=== PATIENT | male | born 1960 | race Caucasian/White ===

== ENCOUNTER 2023-12-05 10:04 | Emergency (ER) | payer SELFPAY ==
[2023-12-05 10:06] VITALS: BP 188/104; PULSE 63; RESP 18; TEMP 36.4; O2SAT 95; BMI 28.3
[2023-12-05 10:38] VITALS: O2SAT 95
--- NOTE | 2023-12-05 10:50 | RAD_ITS ---
STUDY: X-RAY CHEST REASON FOR EXAM: Male, 63 years old. Shortness of breath TECHNIQUE: PA and lateral views of the chest. COMPARISON: None. FINDINGS: Minimal increased markings at the left lung base suggests developing atelectasis. There is no demonstrated pleural abnormality. Normal size heart. Normal mediastinum and muna. Normal visualized pulmonary arteries. Normal visualized aortic arch and descending thoracic aorta. Normal visualized thoracic spine. Prior lower cervical fusion. There is no demonstrated abnormality of the visualized soft tissue structures of the upper abdomen. RAD/Chest PA and Lateral IMPRESSION: Mild increased markings at the left lung base suggestive of left basilar atelectasis. Electronically Signed: Gary Guzman MD at 11:21 EST ,
--- NOTE | 2023-12-05 11:20 | EDS_ITS ---
HPI <Crystal Melara RN - Last Filed: 12/05/23 11:39> History of Present Illness Chief Complaint: Shortness of Breath Detail of Chief Complaint: Shortness of breath and cough x 7 weeks Informant: patient Onset/Context/Timing Onset: Weeks (7) Context: Gradual Onset Timing: Waxes and wanes Current Severity: Mild Maximum Severity: Moderate Worsened by: Worse with walking and laying flat Relieved by: Rest Narrative Narrative: Patient presented to the ED for shortness of breath and cough for 7 weeks. Patient also reports sternal and abdominal pain with coughing. Seen at urgent care 3 times over the past 7 weeks. Prescribed Mucinex, albuterol, and prednisone. Reports some relief with Mucinex. Minimal relief with albuterol. And prednisone has been effective. Patient has been on 3 different antibiotics?doxycycline, Augmentin, azithromycin. Reports improvement after antibiotics for approximately 1 week and then symptoms returned. Patient reports he has not had a chest x-ray. He has declined chest x-ray at urgent care due to lack of insurance. Cough has been productive with variation in color of sputum ranging from brown, green, to rust, currently white now. Patient reports symptoms worsened yesterday and has been begun having spasms with coughing. Patient reports shortness of breath with walking and worse when laying flat. Also reports green nasal drainage for which he has been using saline nasal spray. Denies past medical history and home medications. Reports quarter pack per day smoker x 17 years. Prior similar symptoms: No Recent Illness/Hospitalization: No PFSH <Crystal Melara RN - Last Filed: 12/05/23 11:39> PFS Medical History no medical history no medical history Home Medications prednisone 20 mg tablet 40 mg (2 x 20 mg) PO DAILY 10 days #20 tabs 12/05/23 [Rx Last Taken Unknown] Allergy/AdvReac Type Severity Reaction Status Date / Time No Known Allergies Allergy Verified 12/05/23 10:05 Family History other other (CAD, bladder and liver cancer) Surgical History no surgical history no surgical history Social History Smoking Status: Unknown if ever smoked ROS <Crystal Melara RN - Last Filed: 12/05/23 11:39> ROS ED ENT ENT ED: Reports rhinorrhea; Denies ear pain or sore throat Cardiovascular Cardiovascular: Reports chest pain and orthopnea; Denies palpitations, paroxysmal nocturnal dyspnea or racing heartbeat Respiratory/Chest Respiratory/Chest: Reports cough, dyspnea, dyspnea on exertion, orthopnea and sputum; Denies paroxysmal nocturnal dyspnea Gastrointestinal Gastrointestinal: Reports abdominal pain; Denies constipation, diarrhea, melena, nausea or vomiting Musculoskeletal Musculoskeletal: Denies arthralgias or myalgias Neurologic Neurologic: Denies headache(s) or paresthesias Hematologic/Lymphatic Hematologic/Lymphatic: Reports systems reviewed and no addt'l complaints, except as documented EXAM <Crystal Melara RN - Last Filed: 12/05/23 11:39> Physical Exam Const Vital Signs: 12/05/23 10:06 12/05/23 10:38 Temperature 97.5 F L Temperature Source Temporal Pulse Rate 63 Respiratory Rate 18 Respiratory Effort Normal Short of Breath Blood Pressure 188/104 H Blood Pressure Mean 132 Pulse Ox 95 Oxygen Delivery Method Room Air Room Air Positive well nourished and well developed General Appearance ED: well developed and NAD HEENT Reports moist mucous membranes Eyes PERRL Neck no lymphadenopathy Chest Wall inspection of chest normal and palpation of chest normal Resp normal respiratory effort Auscultation: rhonchi left lower and right lower and wheezes expiratory wheezes, inspiratory wheezes and throughout Cardio regular rate, regular rhythm, S1 normal heart sound and S2 normal heart sound GI normal to inspection, nondistended, normoactive bowel sounds and non-tender Palpation: soft Extremity normal to inspection General Extremety ED: Negative for edema General Extremity: Negative for edema Neuro oriented x3 Sensorium / Orientation: alert Motor Exam: strength 5/5 throughout Psych mental status grossly normal Skin no rashes or lesions noted <Dr. Mulugeta Smith MD - Last Filed: 12/05/23 11:37> Physical Exam Const Vital Signs: 12/05/23 10:06 12/05/23 10:38 Temperature 97.5 F L Temperature Source Temporal Pulse Rate 63 Respiratory Rate 18 Respiratory Effort Normal Short of Breath Blood Pressure 188/104 H Blood Pressure Mean 132 Pulse Ox 95 Oxygen Delivery Method Room Air Room Air MDM <Crystal Melara RN - Last Filed: 12/05/23 11:39> [facility] MDM Narrative Medical decision making narrative: Chest x-ray obtained to evaluate for acute lung pathology, cardiac size, or mediastinal abnormality. History & Record Review Discussion w/independent historian: Patient and Family Radiography Chest X-Ray - ED: 2 View, Read by Radiologist and No Acute Disease Diagnostic Testing: Clinical Impression(s) from Imaging Studies Chest X-Ray 12/05/23 10:50 IMPRESSION: Mild increased markings at the left lung base suggestive of left basilar atelectasis. Electronically Signed: Gary Guzman MD at 11:21 EST , Differential Diagnosis Chest pain/SOB: pulmonary embolism, ACS and pneumonia Management Discussion w/another healthcare provider: Other (Dr. Smith, ED provider) Treatment and Re-Evaluation :: PA and lateral chest x-ray indicates possible atelectasis at the left lung base. No acute pathology. Upon reevaluation patient appears to be resting comfortably in bed. No acute distress noted. Patient will be discharged with diagnosis of upper respiratory infection, bronchospasm. Patient will be prescribed prednisone 40 mg once a day x 10 days. Patient should return for increased shortness of breath, hemoptysis, increased pain, dizziness, or lightheadedness. Plan discussed with patient and family. Patient is agreeable. <Dr. Mulugeta Smith MD - Last Filed: 12/05/23 11:37> MDM MDM Narrative Medical decision making narrative: I have personally performed a face to face assessment of the patient and have reviewed the LORI Note. I performed a substantive portion of the visit including all aspects of the following. My ruiz findings include: History is [63-year-old male prior smoking history quit 17 or 7 years ago. Has had URI symptoms with a chronic cough. Has been seen in urgent care has been on 3 different antibiotics over the last several months. He denies any significant hemoptysis.] Exam is [well-appearing 63-year-old male. Vital signs stable afebrile. H EENT exam unremarkable. Neck nontender no JVD. Lungs expiratory expiratory wheezing. No rales or rhonchi. Equal symmetrical. Heart regular rhythm rate about 65 no murmur. Chest wall nontender. Abdomen soft nontender. Moving all 4 extremities. Calves are nontender without edema or cords. Neurologically is awake alert.] Medical Decision Making [63-year-old male with wheezing possibly from a viral syndrome rule out pneumonia. This could also be underlying COPD that he is never been diagnosed with. Chest x-ray 2 view showed no acute abnormality. Chronic changes. He will be placed on prednisone 40 mg a day for the next 10 days. Follow-up with his doctor. He does not need any further antibiotics or testing at this time.] Other additions or changes: [None] Radiography Chest X-Ray - ED: 2 View, Read by ED Physician, Read by Radiologist, Heart, Lungs, Mediastinum, Bony Structures, No Acute Disease and Chronic Changes Diagnostic Testing: Clinical Impression(s) from Imaging Studies Chest X-Ray 12/05/23 10:50 IMPRESSION: Mild increased markings at the left lung base suggestive of left basilar atelectasis. Electronically Signed: Gary Guzman MD at 11:21 EST , Chest x-ray, 2 views, AP and lateral, interpreted by by myself and the radiologist shows no acute abnormality. No pneumonia. No mass. Normal cardiac silhouette. Normal mediastinum. Discharge Plan Triage Chief Complaint: Shortness of Breath ED Provider: Mulugeta Smith Dx/Rx/DC Orders Instructions: ED Bronchospasm (Adult), ED URI, Viral W/ Wheezing (Adult) Primary Care Provider: Jose Enrique Solo Referrals: Jose Enrique Solo DO [Primary Care Provider] - Activity Restrictions/Additional Instructions: Follow-up with Dr. Solo in 1 - 2 weeks. Return for increasing shortness of breath, chest pain, lightheadedness, or dizziness. Continue to use saline nasal spray for nasal congestion. Continue to use Mucinex as needed for cough. Increase fluid intake to help thin secretions. Disposition Disposition: Home, Self Care
[2023-12-05 12:10] VITALS: BP 166/99; PULSE 91; RESP 20; TEMP 36.1; O2SAT 95
== END 2023-12-05 12:11 | disposition home or self-care (01) ==
PROVIDERS: Emergency Provider Emergency Medicine; PCP Family Medicine; Visit Provider Emergency Medicine
DX: J06.9 Acute upper respiratory infection, unspecified (principal); J98.01 Acute bronchospasm; R07.2 Precordial pain; R10.9 Unspecified abdominal pain; Z87.891 Personal history of nicotine dependence
CPT/HCPCS: 71046; 99282